=== PATIENT | female | born 1935 | race Caucasian/White ===

== ENCOUNTER 2017-06-30 05:31 | Inpatient (IN) | payer MEDICARE, MEDICAID ==
[2017-06-30] MEDS ORDERED: Albuterol Sulfate 1.25 MG/3 ML NEB ONE (06:01)
[2017-06-30] MEDS ORDERED: Magnesium Sulfate 2 GM/100 ML BAG ONE (06:01)
[2017-06-30] MEDS ORDERED: Water For Inject, Bacteriostat 30 ML ONE (06:06)
[2017-06-30] MEDS ORDERED: methylPREDNISolone Sod Succ/PF 125 MG/2 ML VIAL ONE (06:06)
[2017-06-30 06:28] LABS: Oxyhemoglobin 88.6 % (94.0-97.0); Sodium 137 mmol/L (135-148)
[2017-06-30 06:29] LABS: Mode BREATHING TX; Modified Allen's Test POSITIVE; Vent NO
[2017-06-30 06:38] LABS: Hematocrit 38.4 % (36.0-47.0); Mean Platelet Volume 9.4 fL (7.4-10.4); Red Blood Cell (RBC) Count 4.17 mill/uL (4.20-5.40)
[2017-06-30 07:01] LABS: Lactic Acid - Sepsis 1.4 mmol/L (0.5-2.2)
[2017-06-30 07:05] LABS: ALT (SGPT) 8 U/L (8-55); AST (SGOT) 13 U/L (5-34); Alkaline Phosphatase 73 U/L (40-150); Anion Gap 19 mmol/L (10-20); BUN (Urea Nitrogen) 21 mg/dL (9.8-20.1); Bilirubin, Total 0.8 mg/dL (0.2-1.2); Calc. Creatinine Clearance 0 mL/min (70-130); Calcium 10.3 mg/dL (7.8-10.44); Carbon Dioxide 26 mmol/L (23-31); Chloride 98 mmol/L (98-107); Estimated GFR-MDRD 31; Globulin 3.4 g/dL (2.4-3.5)
[2017-06-30 07:11] LABS: Troponin I 0.018 ng/mL (< 0.028)
[2017-06-30] MEDS ORDERED: Cefepime 0.5 GM, Admixture Fee 1 EACH in Sodium Chloride 0.9% 100 ML IVPB SCH (07:30)
[2017-06-30] MEDS ORDERED: Vancomycin HCl 1 GM in Premix Bag 1 BAG IVPB SCH (07:30)
--- NOTE | 2017-06-30 07:44 | RAD ---
AP VIEW CHEST: INDICATIONS: Dyspnea. COMPARISON: 02/10/2016 FINDINGS: The patient is rotated to the left slightly, limiting exam. There is suspicion for a moderate to p rominent layering left-sided pleural effusion. There is prominent cardiomegaly and mild pulmonary v ascular congestion. There is a tiny right pleural effusion present. There is a healed fracture def ormity involving the posterolateral aspect of the right third rib. Scattered degenerative change is present. There is a unilateral spinal construct involving the mid to lower thoracic spine, which i s stable. IMPRESSION: Some limitations of exam due to positioning; however, there is cardiomegaly with pulmonary vascular congestion and bilateral pleural effusion, raising the suspicion for congestive heart failure. Ther e is at least a moderate left layering pleural effusion and a tiny, small layering right pleural eff usion present. Continued followup is recommended. POS: IVAN
[2017-06-30] MEDS ORDERED: Acetaminophen 500 MG TAB ONE (07:47)
[2017-06-30] MEDS ORDERED: Sodium Chloride 0.65% Nasal 44 ML BOT EA NARE PRN (08:38)
[2017-06-30] MEDS ORDERED: Ondansetron ODT 4 MG TAB PO PRN (08:38)
[2017-06-30] MEDS ORDERED: Senokot 8.6 MG TAB PO PRN (08:38)
[2017-06-30] MEDS ORDERED: Diabetic Tussin 200 MG/10 ML UDCUP PO PRN (08:38)
[2017-06-30] MEDS ORDERED: Acetaminophen 325 MG TAB PO PRN (08:38)
[2017-06-30] MEDS ORDERED: Milk Of Magnesia 30 ML UDCUP PO PRN (08:38)
[2017-06-30] MEDS ORDERED: Artificial Tears 18 DROP/0.9 ML EA EYE PRN (08:38)
[2017-06-30] MEDS ORDERED: Mag-Al 1200 mg/1200 mg/30 ML UDCUP PO PRN (08:38)
[2017-06-30] MEDS ORDERED: Loperamide HCl 2 MG CAP PO PRN (08:38)
[2017-06-30] MEDS ORDERED: Ondansetron HCl/PF 4 MG/2 ML Vial IVP PRN (08:38)
[2017-06-30] MEDS ORDERED: Eucerin (Mineral Oil/Petrolatum,White) 30 gm Jar TOP PRN (08:38)
[2017-06-30] MEDS ORDERED: Enoxaparin Sodium 40 MG/0.4 ML SYRINGE SC SCH (09:00)
[2017-06-30] MEDS ORDERED: Cefepime 2 GM in Sodium Chloride 0.9% 100 ML IVPB SCH (09:00)
[2017-06-30] MEDS ORDERED: Famotidine/PF 20 mg/2ml Vial SLOW IVP SCH (09:00)
[2017-06-30] MEDS ORDERED: Lorazepam 2 MG/ML VIAL ONE (09:05)
[2017-06-30 10:17] LABS: Troponin I 0.027 ng/mL (< 0.028)
[2017-06-30 13:22] LABS: Bilirubin Negative (Negative); Blood, Urine Moderate (Negative); Glucose, Urine (Dipstick) Negative (Negative); Ketone, Urine Trace mg/dL (Negative)
[2017-06-30 13:23] LABS: Nitrite Positive (Negative); Protein, Urine (Dipstick) 100 mg/dL (Neg-Trace); Urobilinogen 0.2 mg/dL (0.2-1.0)
[2017-06-30 13:40] LABS: Bacteria/HPF Rare-Few HPF (None Seen); Hyaline Casts/LPF 4-6 HYALINE CAST LPF (0-3 Hyaline); Squamous Epithelial 0-3 HPF (0-3)
[2017-06-30 13:48] LABS: Renal Epithelial 0-3 HPF (0-3); Yeast-All Forms None Seen HPF (None Seen)
--- NOTE | 2017-06-30 14:31 | HP ---
PRIMARY CARE PHYSICIAN: Nida Alex M.D. REASON FOR ADMISSION: Sepsis, acute hypoxic respiratory failure, left-sided pleural effusion. HISTORY OF PRESENT ILLNESS: An 82-year-old female who lives at [facility]. The patient is in respiratory distress initially and she was not able to provide any history. When I saw this p atient, at that time, she was on BiPAP. She was not able to talk in full sentences, so most of the history will obtain from the emergency room record. The patient also has underlying dementia and ps ychiatric problems and she is also not able to provide any coherent history. I tried to call patient's listed phone number Michelle Amaya, but unable to reach her. At this point , the ER physician reported to me that patient was sent from intermediate for increasing shortness o f breath. The patient was hypoxic when she arrived to the emergency room. She was only saturating 88% on 4 liters nasal cannula. She required facemask. Even after facemask, the patient was remaini ng hypoxic; and that is why, she was tried on BiPAP. After BiPAP, patient's saturation improved. Initially, she was tachycardic, tachypneic, and febrile. Her temperature increased from 100.1 to 10 3.3. The patient remained in the ER. Subsequently, after BiPAP therapy, the patient was stabilized and B iPAP was discontinued and the patient was maintaining oxygen via face mask oxygen. In the emergency room, the patient had chest x-ray which showed large left-sided pleural effusion with underlying co nsolidation cannot be entirely excluded. As per previous report, patient does have a history of COPD, scoliosis. Looking at her old records, patient never had this large pleural effusion. I spoke with Dr. Almonte who will be consulting this patient. Initially, we were planning to admit her in IMCU, but as patient's condition was a little bit stabilized after the emergency room treatme nt. At this point, we are deciding to admit her on telemetry floor. EMERGENCY ROOM COURSE: Patient was given initially BiPAP. Patient has received vancomycin 1 gram, Levaquin 750 mg, cefepime 500 mg, Tylenol 1 g, Solu-Medrol 125 mg, DuoNeb therapy and magnesium sulf ate 2 g. REVIEW OF SYSTEMS: All review of systems tried to review with the patient, but unable to review at this point because patient is in respiratory distress. Review of systems from her also not reliable given her level of alertness. PAST MEDICAL HISTORY: Hypertension, chronic obstructive pulmonary disease, dyslipidemia, overactive bladder, scoliosis, chronic diastolic heart failure, mild coronary artery disease, obesity, gastroe sophageal reflux disease, Alzheimer's dementia, chronic normocytic anemia, history of C. diff coliti s and osteoporosis. PAST SURGICAL HISTORY: Cardiac catheterization, surgery for scoliosis with placement of hardware, s ubsequently removal of hardware, left hip surgery, right cataract surgery disease. PAST PSYCHIATRIC HISTORY: Anxiety, depression, bipolar disorder, and schizoaffective disorder. SOCIAL HISTORY: Patient lives at [facility]. No history of tobacco, alcohol or illicit drug abuse. FAMILY HISTORY: The patient is not able to provide any details of family history. ALLERGIES: Patient is not tolerating MILK PRODUCT and LIDOCAINE. CURRENT HOME MEDICATIONS: As per previous record, the patient is on following medication, Abilify 3 0 mg p.o. daily, Cogentin 1 mg p.o. b.i.d., calcium p.r.n., calcium with vitamin D 1 tablet twice da david, Celexa 20 mg p.o. daily, Aricept 10 mg p.o. at bedtime, Lasix 20 mg p.o. daily, DuoNeb q. 6 erwin rly and lactulose 30 mL p.o. b.i.d. p.r.n., Imodium p.r.n., Claritin p.r.n., metoprolol 12.5 mg p.o. b.i.d., multivitamin 1 tablet p.o. daily, Zofran p.r.n., and Zocor 20 mg p.o. at bedtime, Detrol 2 mg p.o. daily, tramadol 50 mg q.i.d. p.r.n. PHYSICAL EXAMINATION: VITAL SIGNS: On admission, blood pressure 155/85, pulse 118, respiratory rate 30, temperature 103.3 , saturation 96% on BiPAP, weight 77.1 kilograms. GENERAL: The patient was appeared initially in mild to moderate respiratory distress. HEENT: Currently, head: Normocephalic, atraumatic. Eyes: Pupils round, reactive to light. Extra ocular muscle intact. ENT: Oropharynx within normal limits. Moist mucous membranes. No oral lesions. No pharyngeal willie thema. No exudate. NECK: Supple. Range of motion is normal. No meningeal signs of irritation. LUNGS: Bilateral end expiratory wheezing heard. Air entry reduced on the left side as well as at b ase. Patient is using accessory muscles of respiration. CARDIAC: S1, S2, regular, tachycardia. No murmur. No gallop. No rub. ABDOMEN: Obesity present. Bowel sounds present, nontender, nondistended. No organomegaly. No mas s. No suprapubic tenderness. BACK EXAMINATION: Unremarkable, no CVA tenderness. EXTREMITIES: Upper extremity passive movement of all joints are normal. Lower extremities: No jessie ma. Good peripheral pulsation. SKIN: No skin rash. HEMATOLOGICAL SYSTEM: No lymphadenopathy. PSYCHIATRIC: Flat affect. When I saw this patient at that time, patient was appeared clinically more comfortable to go to [facility] floor rather than ICU. SIGNIFICANT LABS AND IMAGINGS: EKG showing sinus tachycardia. Chest x-ray based on my review, pulm onary vascular congestion, bilateral pleural effusions, left-sided pleural effusion. CBC: WBC 10.0 , hemoglobin 12.3, platelets 118,000. ABG: pH 7.43, pCO2 of 41.6, pO2 58.1, saturation 91.3, bicar bonate 27.0. BMP sodium 139, potassium 3.8, chloride 98, carbon dioxide 26, anion gap 19, BUN 21, c reatinine 1.59, glucose 116, calcium 9.3. Lactic acid 1.4. LFT: AST 13, ALT 8, alkaline phosphata se 73, albumin 3.6. CK-MB 0.7, troponin 0.018. BNP 179.9 and subsequent troponin 0.027. ASSESSMENT AND PLAN: 1. Acute hypoxic respiratory failure. This patient was in respiratory distress. She was using acc essory muscles of respiration. She was tachypneic. She did not maintain her saturations on nasal c annula, face mask and required short term BiPAP; now patient is off BiPAP. The patient is maintaini ng saturation with facemask. At this point, we underlying etiology of was hypoxic respiratory failu re is pleural effusion, underlying empyema is also possibility, acute on chronic diastolic heart rinku lure is also a possibility, underlying sepsis is also a possibility and patient also has underlying history of chronic obstructive pulmonary disease. At this point, the patient will be admitted to te lemetry floor. We will monitor her oxygen saturations. This patient most likely will end up with h ome oxygen therapy upon discharge. 2. Sepsis with acute organ dysfunction. This patient has high-grade fever, tachycardia, tachypnea with hypoxic respiratory failure and possible renal failure as well. At this point, the patient shruti l be given broad-spectrum antibiotic therapy with cefepime, Levaquin, and vancomycin. Based on pleu ral fluid, we will decide antibiotic therapy. 3. Left-sided pleural effusion. This patient has bilateral pleural effusion, but left-sided more t armendariz right. This could be from congestive heart failure given her high-grade fever, possibility of p arapneumonic effusion cannot be entirely excluded. This patient will need thoracentesis and Dr. Chen mckay is already consulted and he will do a thoracentesis and will follow up on the fluid culture rep ort. 4. Acute on chronic diastolic heart failure. This patient has bilateral pleural effusion. She has diastolic heart failure, so we will obtain echocardiography to assess ejection fraction and other s tructural abnormality. Patient will be given Lasix if blood pressure permits. 5. Chronic kidney disease stage 3-4. At this point, renal function will be monitored closely. We will avoid nephrotoxic agents. 6. Mild thrombocytopenia. This could be related with underlying sepsis. We will monitor CBC. 7. History of anxiety, depression, bipolar disorder, and schizoaffective disorder. At this point, was very, patient's home medication at intermediate; after that whenever patient is able to take p.o ., then we will resume all here psychiatric medication. 8. Chronic obstructive pulmonary disease exacerbation. The patient will be given DuoNeb therapy, S angel-Medrol 20 mg IV q.8 hourly, Robitussin p.r.n. basis. 9. Deep venous thrombosis prophylaxis. Lovenox 40 mg subcu daily. 10. Gastrointestinal prophylaxis, Pepcid 20 mg IV b.i.d. At this point, the patient is at intermediate. CODE STATUS: FULL code and I tried to reach family member to decide about code status, but I am not able to reach any family member. We will consult palliative care who assess with a goal of care. Disposition plan based on clinical course. We are expecting patient's stay in hospital more than 2 midnights. Plan of care discussed with the patient in detail. Prognosis poor. Condition fair.
--- NOTE | 2017-06-30 15:23 | CON ---
DATE OF CONSULTATION: 06/30/2017 SERVICE: Pulmonary Medicine. REASON FOR CONSULTATION: Pleural effusion. HISTORY OF PRESENT ILLNESS: The patient is an 82-year-old white female with past medical history significant for dementia and severe kyphoscoliosis and osteoarthritis. She is completely bedbound and favors sleeping on her left side. She has multiple decubitus ulcers. She is completely unaware of why she is here. She says she is breathing fine and has no acute issues. Otherwise, she is in her usual state of health so far as we are aware. She was in a nursing facility when she developed increasing hypoxemia. She had a fever of 103 and was promptly brought to the emergency department. Initial investigation demonstrated a fairly extensive infiltrate in the left lung. This is the side she favors on when lying down. PAST MEDICAL HISTORY: 1. Dementia. 2. Dyslipidemia. 3. Hypertension. 4. Coronary artery disease, non-flow limiting. 5. Chronic diastolic heart failure. 6. Bipolar disorder. 7. Overactive bladder. 8. Severe debility. PAST SURGICAL HISTORY: 1. Cardiac catheterization. 2. Scoliosis surgery with placement of hardware. 3. Subsequent removal of hardware. 4. Left hip fracture. 5. Right cataract extraction. FAMILY HISTORY: Noncontributory. SOCIAL HISTORY: She currently lives in a nursing facility. She is bedbound and requires total care. She has no significant history of alcohol, tobacco, or illicit drug use. ALLERGIES: MILK PRODUCTS, LIDOCAINE. MEDICATIONS: List of her inpatient medications were reviewed. No specific updates were made at this time. REVIEW OF SYSTEMS: General, head, ears, eyes, nose, throat, cardiovascular, respiratory, GI, , musculoskeletal, neurologic and skin is negative except as mentioned in the HPI. PHYSICAL EXAMINATION: VITAL SIGNS: Afebrile, pulse 69, blood pressure 130/79, respirations 16, saturation 97% on 2 liters nasal cannula. GENERAL: Patient is awake, alert, in no apparent distress. LUNGS: Decent air entry on the right. There is rhonchi present on the left. There is also decreased air entry on that side. No crackles or wheezing is appreciated. HEART: Normal rate, regular. ABDOMEN: Soft, nontender, nondistended. Bowel sounds are positive. She has a large hernia. MUSCULOSKELETAL: No cyanosis or clubbing. No pitting in the bilateral lower extremities. She has a little bit of skin tenting. GENITOURINARY: No Cota. NEUROLOGIC: Grossly nonfocal. LABORATORY DATA: WBC 10.0, hemoglobin 12.3, platelets 118,000. Neutrophil count is pending. PH 7.43, pCO2 of 41, pO2 of 58 on 40% FIO2 corresponding to saturation of 91%. Creatinine 1.53, which is slightly above baseline. Basic metabolic profile, liver function study, cardiac enzymes x2 are unremarkable. Lactate is normal. BNP is above her previous baseline established in 02/2016 at 180. WBCs are greater than 50 in the urine. She has positive leukocyte esterase and nitrites. IMAGING: Chest x-ray demonstrates extensive opacities involving the entirety of the left lung. The pleural effusion cannot completely be excluded. There is cardiomegaly and some pulmonary vascular congestion. There is a blunting of the right costophrenic angle as well, suggestive of a possible effusion on that side. Extensive hardware is in place throughout the spine. ASSESSMENT: 1. Acute hypoxic respiratory failure. 2. Severe kyphoscoliosis. 3. Dementia, advanced. 4. Debility. 5. Healthcare-associated pneumonia, likely associated with gross aspiration. 6. Failure to thrive PLAN: We will do a swallow evaluation. We will be continued on broad spectrum antibiotics. I did a bedside ultrasound, but did not identify any significant pocket of fluid. We will repeat a chest x-ray in 2 to 3 days, but as long as things remain stable, we will likely need a repeat chest x-ray in the outpatient setting in roughly 6 weeks. Ultimately, the patient likely develops this infiltrate because she is in bedbound state and favors lying on her left side. She does not cough and mucus plugging may be playing a role. My suspicion is, she is chronically spilling stuff into her lungs. I will continue to follow while she remains in the hospital for the time being, but a palliative care consultation and speech evaluation will be placed. EJ
[2017-06-30] MEDS: Saccharomyces boulardii 250 MG CAP PO SCH (16:44)
[2017-06-30] MEDS: Bisacodyl 10 MG SUPP PR PRN (17:55)
[2017-06-30] MEDS: Cefepime 2 GM in Sodium Chloride 0.9% 100 ML IVPB SCH (22:22)
[2017-07-01 06:06] LABS: #Lymphocytes 0.4 thou/uL (1.20-3.40); #Monocytes 0.7 thou/uL (0.11-0.59); #Neutrophils 11.6 thou/uL (1.40-6.50); %Eosinophils 0.1 % (0.0-10.0); %Lymphocytes 2.8 % (21.0-51.0); %Monocytes 5.3 % (0.0-10.0); Hematocrit 33.8 % (36.0-47.0); Mean Platelet Volume 10.1 fL (7.4-10.4); Red Blood Cell (RBC) Count 3.64 mill/uL (4.20-5.40); White Blood Cell (WBC) Count 12.6 thou/uL (4.8-10.8)
[2017-07-01 06:32] LABS: ALT (SGPT) 7 U/L (8-55); AST (SGOT) 12 U/L (5-34); Alkaline Phosphatase 69 U/L (40-150); Anion Gap 17 mmol/L (10-20); BUN (Urea Nitrogen) 33 mg/dL (9.8-20.1); Bilirubin, Total 0.4 mg/dL (0.2-1.2); Calc. Creatinine Clearance 26 mL/min (70-130); Carbon Dioxide 29 mmol/L (23-31); Chloride 96 mmol/L (98-107); Estimated GFR-MDRD 28; Globulin 3.6 g/dL (2.4-3.5); Protein, Total 6.9 g/dL (6.0-8.3)
--- NOTE | 2017-07-01 07:26 | PDOC.PN ---
- Subjective Encounter Start Date: 07/01/17 Encounter Start Time: 07:24 Subjective: alert,appropriate, knows her PCP, residense - Objective Resuscitation Status: Resuscitation Status FULL:Full Resuscitation MAR Reviewed: Yes Vital Signs & Weight: Vital Signs (12 hours) Temp Pulse Resp BP Pulse Ox 07/01/17 00:00 97.4 F L 87 18 113/53 L 97 06/30/17 23:41 78 16 92 L 06/30/17 19:50 97.4 F L 87 18 108/58 L 96 Weight Weight 141 lb I&O: 06/30/17 07/01/17 07/02/17 06:59 06:59 06:59 Intake Total 240 Balance 240 Result Diagrams: 07/01/17 04:28 07/01/17 04:28 Phys Exam - Physical Examination Constitutional: NAD Neck: no JVD decreased BS, worse on left. dull L base Cardiovascular: RRR, no significant murmur Gastrointestinal: soft, positive bowel sounds Musculoskeletal: edema present Dx/Plan (1) PNA (pneumonia) Code(s): J18.9 - PNEUMONIA, UNSPECIFIED ORGANISM Status: Acute Qualifiers: Pneumonia type: due to unspecified organism Laterality: left (2) Pleural effusion due to congestive heart failure Code(s): I50.9 - HEART FAILURE, UNSPECIFIED Status: Chronic (3) Chronic diastolic (congestive) heart failure Code(s): I50.32 - CHRONIC DIASTOLIC (CONGESTIVE) HEART FAILURE Status: Chronic (4) CAD (coronary artery disease) Code(s): I25.10 - ATHSCL HEART DISEASE OF [place] CORONARY ARTERY W/O ANG PCTRS Status: Chronic Qualifiers: Coronary Disease-Associated Artery/Lesion type: [place] artery [place] vs. transplanted heart: [place] heart Associated angina: without angina Qualified Code(s): I25.10 - Atherosclerotic heart disease of [place] coronary artery without angina pectoris (5) HTN (hypertension) Code(s): I10 - ESSENTIAL (PRIMARY) HYPERTENSION Status: Acute Qualifiers: Hypertension type: essential hypertension Qualified Code(s): I10 - Essential (primary) hypertension (6) CKD (chronic kidney disease) stage 3, GFR 30-59 ml/min Code(s): N18.3 - CHRONIC KIDNEY DISEASE, STAGE 3 (MODERATE) Status: Chronic - Plan marked improvement in alertness -: await C&S -: cont iv antibx, steroids, resp tx -: reinstitute metoprolol -: discuss with Dr Almonte * .
[2017-07-01] MEDS: Cefepime 2 GM in Sodium Chloride 0.9% 100 ML IVPB SCH ×2 (09:33→21:45)
[2017-07-01] MEDS: Saccharomyces boulardii 250 MG CAP PO SCH (09:36)
[2017-07-01] MEDS: Loratadine 10 MG TAB PO SCH (09:36)
[2017-07-01] MEDS: Enoxaparin Sodium 40 MG/0.4 ML SYRINGE SC SCH (09:38)
[2017-07-01] MEDS: Vancomycin HCl 500 MG in Sodium Chloride 0.9% 100 ML IVPB SCH (09:55)
--- NOTE | 2017-07-01 12:09 | PQF ---
CLINICAL DOCUMENTATION IMPROVEMENT CLARIFICATION FORM: ICD-10 Updated PLEASE DO AN ADDENDUM TO THE PROGRESS NOTE WITH ANY DOCUMENTATION UPDATES OR ADDITIONS AND CARRY THROUGH TO DC SUMMARY. THANK YOU. DATE: 07/01/17 ATTN: DR. MONTES DE OCA The following CLINICAL INDICATORS - SIGNS / SYMPTOMS are present in the medical record: H&P 06/30: "SEPSIS WITH ACUTE ORGAN DYSFUNCTION" TEMP 103.3 RECTAL PULSE 118 RR 32 WBC 12.6 RISKS: PNEUMONIA TREATMENT: IV VANCOMYCIN (ER-PRESENT) IV CEFEPIME (ER-PRESENT) IV LEVAQUIN (ER-PRESENT) BLOOD CULTURES CARDIAC MONITORING Please provide a response below if a more specific term indicating a diagnosis and/or acuity level for this condition can be identified. Please exercise your independent, professional judgment in responding to the clarification form. Present on Admission:[ ] Yes[ ] No[ ] Unable to determine [ ] Sepsis (include causative agent if known) Due to: [ ] Device [ ] Implant [ ] Graft [ ] Infusion [ ] [ ] SIRS due to non-infectious process [ ] with organ dysfunction [ ] without organ dysfunction [ ] Severe sepsis with acute organ dysfunction of: (Examples: respiratory failure, encephalopathy, acute kidney failure, other) [ ] Septic shock [ ] Sepsis related to a device (i.e. port, IV line, pacer / ICD leads, Cota, etc.) [ x ] Does not apply to this patient [ ] Unable to determine [ ] Other diagnosis Definitions [facility] 2002: SIRS- clinical response to an insult, infection, or trauma that includes a systemic in?ammation as well as increased or decreased temp, increased pulse, respiration and white count. SEPSIS- SIRS due to infection without organ dysfunction. SEVERE SEPSIS- SIRS due to an infection that progress to organ dysfunction. SEPTIC SHOCK- circulatory failure associated with severe sepsis, and represents a type of acute organ dysfunction. (This form is maintained as a part of the permanent medical record) 2015 [employer]. All Rights Reserved [email or web address] Office: [phone] [facility] HOSPITALDin[facility]
--- NOTE | 2017-07-01 12:20 | PQF ---
CLINICAL DOCUMENTATION IMPROVEMENT CLARIFICATION FORM: ICD-10 Updated PLEASE DO AN ADDENDUM TO THE PROGRESS NOTE WITH ANY DOCUMENTATION UPDATES OR ADDITIONS AND CARRY THROUGH TO DC SUMMARY. THANK YOU. DATE: 07/01/17 ATTN: DR. 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 Please exercise your independent, professional judgment in responding to the clarification form. [ ] Gram Negative Pneumonia[ ] Gram Positive Pneumonia [ ] MRSA Pneumonia[ ] MSSA Pneumonia [ ] Pneumonia due to (specify organism / underlying disease) (e.g. E. Coli, Klebsiella, Pneumococcus, Pseudomonas, Other Staph) [ ] Community acquired (simple) Pneumonia [ ] Healthcare / Hospital Acquired Pneumonia (outside facility / prior hospitalization) [ x ] Aspiration pneumonia [ x] Associated illness: [ x ] Respiratory failure [ ] Sepsis [ ] Underlying lung disease [ ] Other [ ] Pneumonia of unknown etiology [ ] Infiltrates without evidence of Pneumonia [ ] Does not apply to this patient [ ] Unable to determine [ ] Other diagnosis: [ ] Present on Admission (POA): [ ] Yes [ ] No [ ] Unable to determine [employer] (This form is maintained as a part of the permanent medical record) 2014 [employer]. All Rights Reserved [email or web address] Office: [phone] [facility]
--- NOTE | 2017-07-01 14:07 | PDOC.EVN ---
Event Note - Event Note Event Note: faailed bedside swallow. NPO, gentle iv fluids
[2017-07-01] MEDS: D5 1/4 NS w/20 mEq KCL 1,000 ML IV SCH (15:27)
--- NOTE | 2017-07-01 16:48 | PRG ---
DATE OF SERVICE: 07/01/2017 SERVICE: Pulmonary Medicine. INTERVAL HISTORY: The patient is doing fine from a cardiovascular and respiratory standpoint. She denies any current fevers, chills, nausea, vomiting , chest pain, shortness of breath, nausea, vomiting or diarrhea. Otherwise, she has no specific complaints. That being said, she really does not remember why she came to the hospital in the first place. PHYSICAL EXAMINATION: VITAL SIGNS: Afebrile, pulse 115, blood pressure 114/57, respirations 20, saturation 96% on 3.5 liters nasal cannula. GENERAL: Patient is awake, alert, in no apparent distress. LUNGS: Reduced air entry with prolonged expiratory phase and both rhonchi and crackles present. It is worse on the left, than the right. HEART: Normal rate, regular. ABDOMEN: Soft, nontender, nondistended. Bowel sounds positive. MUSCULOSKELETAL: No cyanosis or clubbing. No pitting in the bilateral lower extremities. NEUROLOGIC: Grossly nonfocal. LABORATORY DATA: WBC 12.6, hemoglobin 11.0, platelets 133,000, improving. Neutrophil count is 92%. Creatinine 1.75, BUN 33. Basic metabolic profile and liver function studies are otherwise unremarkable. Cardiac enzymes are negative x3. Nitrites and leukocyte esterase are positive on the urinalysis. Respiratory virus panel is unremarkable. Blood cultures are negative x2 today. ASSESSMENT: 1. Acute hypoxic respiratory failure. 2. Severe kyphoscoliosis. 3. Dementia. 4. Debility. 5. Healthcare-associated pneumonia, likely associated with gross aspiration. 6. Failure to thrive. PLAN: We have the patient to undergo evaluation with speech pathology. Broad spectrum antibiotics will be continued to target healthcare associated organisms. Based on bedside ultrasound, there is not pleural effusion. Pulmonary will continue to follow while the patient remains in house. Ultimately, the patient's respiratory diseases likely associated with severe debility and chronic inability to effectively clear her airway. EJ
[2017-07-01] MEDS ORDERED: Non-Formulary Item 1 EACH (Simvastatin [Zocor] 10 MG) PO SCH (21:00)
[2017-07-01] MEDS: Simvastatin 5 MG TAB PO SCH (21:46)
[2017-07-02] MEDS: D5 1/4 NS w/20 mEq KCL 1,000 ML IV SCH ×2 (03:57→17:31)
--- NOTE | 2017-07-02 08:39 | PDOC.PN ---
- Subjective Encounter Start Date: 07/02/17 Encounter Start Time: 08:35 Subjective: much more alert, no distress - Objective Resuscitation Status: Resuscitation Status DNR:Do Not Resuscitate MAR Reviewed: Yes Vital Signs & Weight: Vital Signs (12 hours) Temp Pulse Resp BP Pulse Ox 07/02/17 06:47 101 H 20 96 07/02/17 04:00 98.0 F 88 18 117/56 L 97 07/02/17 00:52 81 16 100 07/02/17 00:00 97.1 F L 105 H 20 110/55 L 99 Weight Weight 141 lb I&O: 07/01/17 07/02/17 07/03/17 06:59 06:59 06:59 Intake Total 560 1110 Balance 560 1110 Result Diagrams: 07/01/17 04:28 07/01/17 04:28 Phys Exam - Physical Examination Constitutional: NAD Neck: no JVD dull L base,post rales Cardiovascular: RRR, no significant murmur Gastrointestinal: soft, positive bowel sounds Musculoskeletal: edema present Dx/Plan (1) PNA (pneumonia) Code(s): J18.9 - PNEUMONIA, UNSPECIFIED ORGANISM Status: Acute Qualifiers: Pneumonia type: aspiration pneumonia Laterality: left (2) Pleural effusion due to congestive heart failure Code(s): I50.9 - HEART FAILURE, UNSPECIFIED Status: Chronic (3) Chronic diastolic (congestive) heart failure Code(s): I50.32 - CHRONIC DIASTOLIC (CONGESTIVE) HEART FAILURE Status: Chronic (4) CAD (coronary artery disease) Code(s): I25.10 - ATHSCL HEART DISEASE OF [place] CORONARY ARTERY W/O ANG PCTRS Status: Chronic Qualifiers: Coronary Disease-Associated Artery/Lesion type: [place] artery [place] vs. transplanted heart: [place] heart Associated angina: without angina Qualified Code(s): I25.10 - Atherosclerotic heart disease of [place] coronary artery without angina pectoris (5) HTN (hypertension) Code(s): I10 - ESSENTIAL (PRIMARY) HYPERTENSION Status: Acute Qualifiers: Hypertension type: essential hypertension Qualified Code(s): I10 - Essential (primary) hypertension (6) CKD (chronic kidney disease) stage 3, GFR 30-59 ml/min Code(s): N18.3 - CHRONIC KIDNEY DISEASE, STAGE 3 (MODERATE) Status: Chronic - Plan cont antibx, O2, steroids -: rpt cxr, discuss with pulmonology * .
[2017-07-02] MEDS: Saccharomyces boulardii 250 MG CAP PO SCH (09:03)
[2017-07-02] MEDS: Loratadine 10 MG TAB PO SCH (09:03)
[2017-07-02] MEDS: Enoxaparin Sodium 40 MG/0.4 ML SYRINGE SC SCH (09:03)
[2017-07-02] MEDS: Vancomycin HCl 500 MG in Sodium Chloride 0.9% 100 ML IVPB SCH (09:07)
[2017-07-02] MEDS: Cefepime 2 GM in Sodium Chloride 0.9% 100 ML IVPB SCH (09:12)
[2017-07-02 09:57] LABS: Vancomycin, Trough 7.9 ug/mL
[2017-07-02] MEDS ORDERED: Vancomycin HCl 1 GM in Premix Bag 1 BAG IVPB SCH (11:00)
--- NOTE | 2017-07-02 12:24 | RAD ---
AP VIEW CHEST: 07/02/2017 HISTORY: Pneumonia. COMPARISON: 06/30/2017 FINDINGS: AP view chest demonstrates right-sided thoracic spine surgical hardware with pedicle screws in place . The patient has marked dextroscoliosis. There is cardiomegaly seen. There appears to be an area of lucency in the left retrocardiac area, c oncerning for a possible hiatal hernia. The patient has had a decrease in the left-sided pleural ef fusion, when compared to the previous exam from two days earlier. Some fluid remains in the left surekha ng base. POS: [facility]
--- NOTE | 2017-07-02 15:44 | PRG ---
DATE OF SERVICE: 07/02/2017 SUBJECTIVE: Surprisingly, she is awake and responsive. She denies any difficulty breathing. PHYSICAL EXAMINATION: VITAL SIGNS: Pulse 106, temperature 97, blood pressure 100/73, pulse 96. CHEST: Decreased breath sounds. No wheezing or crackles. CARDIAC: Normal S1, S2. No gallops. ABDOMEN: Soft, no masses. X-RAY FINDINGS: Chest x-ray shows cardiomegaly, small left-sided effusion. IMPRESSION: 1. Respiratory failure, improved. 2. Kyphoscoliosis. 3. Dementia. 4. Pneumonia. 5. Aspiration. PLAN: Microbiologic cultures are negative. I would consider deescalating antibiotics. Continue ot [facility] supportive care, neb, PT.
[2017-07-02] MEDS: Simvastatin 5 MG TAB PO SCH ×2 (19:59→20:28)
[2017-07-03] MEDS: D5 1/4 NS w/20 mEq KCL 1,000 ML IV SCH ×2 (05:34→19:47)
[2017-07-03] MEDS ORDERED: Vancomycin HCl 500 MG in Sodium Chloride 0.9% 100 ML IVPB SCH (09:00)
[2017-07-03] MEDS: Loratadine 10 MG TAB PO SCH (09:51)
[2017-07-03] MEDS: Enoxaparin Sodium 40 MG/0.4 ML SYRINGE SC SCH (09:51)
[2017-07-03] MEDS: Saccharomyces boulardii 250 MG CAP PO SCH (09:51)
--- NOTE | 2017-07-03 10:10 | PDOC.PN ---
- Subjective Encounter Start Date: 07/03/17 Encounter Start Time: 10:07 Subjective: no sob, pain, etc - Objective Resuscitation Status: Resuscitation Status DNR:Do Not Resuscitate MAR Reviewed: Yes Vital Signs & Weight: Vital Signs (12 hours) Temp Pulse Resp BP Pulse Ox 07/03/17 08:15 97.9 F 110 H 22 H 139/72 2 L 07/03/17 07:48 101 H 18 96 07/03/17 04:00 98.4 F 108 H 18 121/70 99 07/03/17 00:57 103 H 20 99 07/03/17 00:00 98.3 F 127 H 24 H 139/66 92 L Weight Weight 143 lb 12.8 oz I&O: 07/02/17 07/03/17 07/04/17 06:59 06:59 06:59 Intake Total 1110 780 Balance 1110 780 Result Diagrams: 07/01/17 04:28 07/01/17 04:28 Phys Exam - Physical Examination Constitutional: NAD Neck: no JVD dull L base with rales Cardiovascular: RRR 3/6 sys murmur Gastrointestinal: soft, positive bowel sounds Musculoskeletal: edema present Dx/Plan (1) PNA (pneumonia) Code(s): J18.9 - PNEUMONIA, UNSPECIFIED ORGANISM Status: Acute Qualifiers: Pneumonia type: aspiration pneumonia Laterality: left (2) Pleural effusion due to congestive heart failure Code(s): I50.9 - HEART FAILURE, UNSPECIFIED Status: Chronic (3) Chronic diastolic (congestive) heart failure Code(s): I50.32 - CHRONIC DIASTOLIC (CONGESTIVE) HEART FAILURE Status: Chronic (4) CAD (coronary artery disease) Code(s): I25.10 - ATHSCL HEART DISEASE OF [place] CORONARY ARTERY W/O ANG PCTRS Status: Chronic Qualifiers: Coronary Disease-Associated Artery/Lesion type: [place] artery [place] vs. transplanted heart: [place] heart Associated angina: without angina Qualified Code(s): I25.10 - Atherosclerotic heart disease of [place] coronary artery without angina pectoris (5) HTN (hypertension) Code(s): I10 - ESSENTIAL (PRIMARY) HYPERTENSION Status: Acute Qualifiers: Hypertension type: essential hypertension Qualified Code(s): I10 - Essential (primary) hypertension (6) CKD (chronic kidney disease) stage 3, GFR 30-59 ml/min Code(s): N18.3 - CHRONIC KIDNEY DISEASE, STAGE 3 (MODERATE) Status: Chronic - Plan cont iv antibx -: cont O2, steroids, consider change to po -: discussed aspiration with speech tx, cancl MBS, avoid thi liquids * .
--- NOTE | 2017-07-03 17:23 | PDOC.EVN ---
Event Note - Event Note Event Note: sustained sinus tachcardia, of po metoprolol. start iv metoprolol.
--- NOTE | 2017-07-03 17:23 | PRG ---
DATE OF SERVICE: 07/03/2017 SUBJECTIVE: She denies any pain or shortness of breath. X-ray yesterday shows significant rotation , questionable left-sided infiltrate. PHYSICAL EXAMINATION: VITAL SIGNS: Temperature 97, sats are 99% on 2 liters, respiration 22, blood pressure 100/72. CHEST: Decreased breath sounds, no wheezing. CARDIAC: Normal S1, S2, no gallops. ABDOMEN: Soft, no masses. IMPRESSION: 1. Urinary tract infection. 2. Pneumonia. 3. Deconditioning. 3. Kyphoscoliosis. PLAN: 1. She may be switched over to oral antibiotic. 2. Pulmonary to follow. 3. Levaquin she is on is resistant to her E. coli.
[2017-07-03] MEDS: Metoprolol Tartrate 5 MG/5 ML VIAL IVP PRN (18:04)
[2017-07-03] MEDS: Sulfameth/Trimethoprim DS 800-160mg TAB PO SCH (19:48)
[2017-07-03] MEDS: Simvastatin 5 MG TAB PO SCH ×2 (19:50→19:52)
[2017-07-04] MEDS: Metoprolol Tartrate 5 MG/5 ML VIAL IVP PRN (06:17)
[2017-07-04 07:42] VITALS: BMI 3979.0
[2017-07-04] MEDS ORDERED: Metoprolol Tartrate 5 MG/5 ML VIAL IVP SCH (08:00)
[2017-07-04] MEDS: Loratadine 10 MG TAB PO SCH (08:18)
[2017-07-04] MEDS: Sulfameth/Trimethoprim DS 800-160mg TAB PO SCH ×2 (08:18→21:35)
[2017-07-04] MEDS: Saccharomyces boulardii 250 MG CAP PO SCH (08:18)
[2017-07-04] MEDS: Enoxaparin Sodium 40 MG/0.4 ML SYRINGE SC SCH (08:18)
[2017-07-04] MEDS: Bisacodyl 10 MG SUPP PR PRN (08:19)
[2017-07-04] MEDS: D5 1/4 NS w/20 mEq KCL 1,000 ML IV SCH ×2 (08:21→21:35)
[2017-07-04] MEDS ORDERED: Metoprolol Tartrate 5 MG/5 ML VIAL IVP PRN (09:32)
--- NOTE | 2017-07-04 09:36 | PDOC.PN ---
- Subjective Encounter Start Date: 07/04/17 Encounter Start Time: 09:33 Subjective: alert, no sob, etc - Objective Resuscitation Status: Resuscitation Status DNR:Do Not Resuscitate MAR Reviewed: Yes Vital Signs & Weight: Vital Signs (12 hours) Temp Pulse Resp BP Pulse Ox 07/04/17 06:45 117 H 20 99 07/04/17 04:00 98.6 F 114 H 18 122/56 L 100 07/04/17 00:36 97 18 98 07/04/17 00:00 97.4 F L 88 20 141/87 H 99 Weight Weight 141 lb 8 oz I&O: 07/03/17 07/04/17 07/05/17 06:59 06:59 06:59 Intake Total 780 2773 Balance 780 2773 Result Diagrams: 07/01/17 04:28 07/01/17 04:28 Phys Exam - Physical Examination Constitutional: NAD Neck: no JVD Respiratory: clear to auscultation bilateral dull L base Cardiovascular: RRR, no significant murmur Gastrointestinal: soft, positive bowel sounds Musculoskeletal: edema present Dx/Plan (1) PNA (pneumonia) Code(s): J18.9 - PNEUMONIA, UNSPECIFIED ORGANISM Status: Acute Qualifiers: Pneumonia type: aspiration pneumonia Laterality: left (2) Pleural effusion due to congestive heart failure Code(s): I50.9 - HEART FAILURE, UNSPECIFIED Status: Chronic (3) Chronic diastolic (congestive) heart failure Code(s): I50.32 - CHRONIC DIASTOLIC (CONGESTIVE) HEART FAILURE Status: Chronic (4) CAD (coronary artery disease) Code(s): I25.10 - ATHSCL HEART DISEASE OF [place] CORONARY ARTERY W/O ANG PCTRS Status: Chronic Qualifiers: Coronary Disease-Associated Artery/Lesion type: [place] artery [place] vs. transplanted heart: [place] heart Associated angina: without angina Qualified Code(s): I25.10 - Atherosclerotic heart disease of [place] coronary artery without angina pectoris (5) HTN (hypertension) Code(s): I10 - ESSENTIAL (PRIMARY) HYPERTENSION Status: Acute Qualifiers: Hypertension type: essential hypertension Qualified Code(s): I10 - Essential (primary) hypertension (6) CKD (chronic kidney disease) stage 3, GFR 30-59 ml/min Code(s): N18.3 - CHRONIC KIDNEY DISEASE, STAGE 3 (MODERATE) Status: Chronic - Plan much improved, on purred, thickened liquids -: reinsituting metoprolol po, cont prn iv for rate control -: cont po SXT -: DC to NH when stable on diet, poo meds * .
[2017-07-04] MEDS ORDERED: Metoprolol Tartrate 25 MG TAB PO SCH (12:00)
--- NOTE | 2017-07-04 20:55 | PRG ---
DATE OF SERVICE: 07/04/2017 SERVICE: Pulmonary Medicine. INTERVAL HISTORY: The patient is doing fine from a respiratory standpoint. She has no complaints of nausea, vomiting, or diarrhea. Otherwise, she is in her usual state of health. PHYSICAL EXAMINATION: VITAL SIGNS: Afebrile, pulse 87, blood pressure 108/60, respirations 18, saturation 96% on 2 liters nasal cannula. GENERAL: Patient is awake, alert, in no apparent distress. LUNGS: Decent air entry without prolonged expiratory phase, wheezing, rhonchi or crackles. HEART: Normal rate, regular. ABDOMEN: Soft, nontender, nondistended. Bowel sounds positive. MUSCULOSKELETAL: No cyanosis or clubbing. There is no pitting in the bilateral lower extremities. NEUROLOGIC: Grossly nonfocal. LABORATORY DATA: Urine culture is growing E. coli, which is [place] resistant and extended spectrum beta lactamase producing organism. Blood cultures x2 and respiratory virus panel is negative. IMAGING: Echocardiogram demonstrates 60% ejection fraction with fused E/A waves , but there is likely diastolic dysfunction present. No significant valvular abnormalities are identified. ASSESSMENT: 1. Acute hypoxic respiratory failure. 2. Healthcare-associated pneumonia, possible, associated with gross aspiration. 3. Debility. 4. Dementia. 5. Severe kyphoscoliosis. 6. Failure to thrive. PLAN: Continue supportive care, antibiotics, and aspiration precautions. At this time , the patient has no further need for inpatient pulmonary or critical care opinion. I will sign off. Please call with additional questions or concerns. EJ
[2017-07-04] MEDS: Metoprolol Tartrate 25 MG TAB PO SCH (21:34)
--- NOTE | 2017-07-05 08:18 | PDOC.PN ---
- Subjective Encounter Start Date: 07/05/17 Encounter Start Time: 08:16 Subjective: SOB improving -: No cp/palpitations -: No n/v - Objective Resuscitation Status: Resuscitation Status DNR:Do Not Resuscitate MAR Reviewed: Yes Vital Signs & Weight: Vital Signs (12 hours) Temp Pulse Resp BP Pulse Ox 07/05/17 06:29 81 16 97 07/05/17 04:00 98.2 F 87 21 H 129/83 96 07/05/17 00:00 97.9 F 82 20 137/63 96 Weight Weight 137 lb 6.4 oz I&O: 07/04/17 07/05/17 07/06/17 06:59 06:59 06:59 Intake Total 2773 761 Balance 2773 761 Result Diagrams: 07/01/17 04:28 07/01/17 04:28 Phys Exam - Physical Examination Constitutional: NAD HEENT: moist MMs, sclera anicteric Neck: no nodes, no JVD Respiratory: no wheezing, no rales Cardiovascular: no significant murmur, no rub Gastrointestinal: soft, non-tender, no distention, positive bowel sounds Neurological: non-focal Lymphatic: no nodes Psychiatric: normal affect Skin: no rash, normal turgor Dx/Plan (1) CAD (coronary artery disease) Code(s): I25.10 - ATHSCL HEART DISEASE OF [place] CORONARY ARTERY W/O ANG PCTRS Status: Chronic Qualifiers: Coronary Disease-Associated Artery/Lesion type: [place] artery [place] vs. transplanted heart: [place] heart Associated angina: without angina Qualified Code(s): I25.10 - Atherosclerotic heart disease of [place] coronary artery without angina pectoris (2) CKD (chronic kidney disease) stage 3, GFR 30-59 ml/min Code(s): N18.3 - CHRONIC KIDNEY DISEASE, STAGE 3 (MODERATE) Status: Chronic (3) Chronic diastolic (congestive) heart failure Code(s): I50.32 - CHRONIC DIASTOLIC (CONGESTIVE) HEART FAILURE Status: Chronic (4) Pleural effusion due to congestive heart failure Code(s): I50.9 - HEART FAILURE, UNSPECIFIED Status: Chronic (5) UTI (urinary tract infection) Status: Acute (6) COPD with exacerbation Code(s): J44.1 - CHRONIC OBSTRUCTIVE PULMONARY DISEASE W (ACUTE) EXACERBATION Status: Acute - Plan * Dysphagia: on purred, thickened liquids * COPD exacerbation/Pneumonitis - appreciate pulm input, continue steroids * E. coli UTI - continue Bactrim for E coli UTI - Cr likely elevated 2/2 Bactrim (check Cr in AM) * Physical Debility - consult PT/OT * Goals of care - palliative care consulted * Pending acceptance to SNF (will discharge when Cr plateaus)
[2017-07-05] MEDS: Metoprolol Tartrate 25 MG TAB PO SCH ×2 (08:52→21:45)
[2017-07-05] MEDS: Sulfameth/Trimethoprim DS 800-160mg TAB PO SCH ×2 (08:52→21:45)
[2017-07-05] MEDS: Saccharomyces boulardii 250 MG CAP PO SCH (08:52)
[2017-07-05] MEDS: Enoxaparin Sodium 40 MG/0.4 ML SYRINGE SC SCH (08:52)
[2017-07-05] MEDS: Loratadine 10 MG TAB PO SCH (08:52)
[2017-07-05] MEDS: D5 1/4 NS w/20 mEq KCL 1,000 ML IV SCH ×2 (10:36→21:46)
[2017-07-05] MEDS: Simvastatin 5 MG TAB PO SCH (21:45)
[2017-07-06 06:36] LABS: #Eosinphils 0.1 thou/uL (0.0-0.7); #Lymphocytes 1.5 thou/uL (1.20-3.40); #Monocytes 1.1 thou/uL (0.11-0.59); %Eosinophils 0.6 % (0.0-10.0); %Lymphocytes 9.5 % (21.0-51.0); %Monocytes 7.1 % (0.0-10.0); Hematocrit 36.9 % (36.0-47.0); Mean Platelet Volume 9.4 fL (7.4-10.4); Red Blood Cell (RBC) Count 4.08 mill/uL (4.20-5.40); White Blood Cell (WBC) Count 15.7 thou/uL (4.8-10.8)
[2017-07-06 06:58] LABS: Anion Gap 12 mmol/L (10-20); BUN (Urea Nitrogen) 16 mg/dL (9.8-20.1); Calc. Creatinine Clearance 41 mL/min (70-130); Calcium 7.9 mg/dL (7.8-10.44); Carbon Dioxide 20 mmol/L (23-31); Chloride 103 mmol/L (98-107); Estimated GFR-MDRD 49
[2017-07-06] MEDS: Sulfameth/Trimethoprim DS 800-160mg TAB PO SCH (08:29)
[2017-07-06] MEDS: Enoxaparin Sodium 40 MG/0.4 ML SYRINGE SC SCH (08:29)
[2017-07-06] MEDS: Saccharomyces boulardii 250 MG CAP PO SCH (08:29)
[2017-07-06] MEDS: Loratadine 10 MG TAB PO SCH (08:30)
[2017-07-06] MEDS: Metoprolol Tartrate 25 MG TAB PO SCH (08:30)
--- NOTE | 2017-07-06 09:11 | PDOC.PN ---
- Subjective Encounter Start Date: 07/06/17 Encounter Start Time: 09:10 Subjective: SOB stable -: Pleasant -: No cp/palpitations - Objective Resuscitation Status: Resuscitation Status DNR:Do Not Resuscitate MAR Reviewed: Yes Vital Signs & Weight: Vital Signs (12 hours) Temp Pulse Resp BP Pulse Ox 07/06/17 08:00 98 F 87 16 112/56 L 94 L 07/06/17 07:43 97 07/06/17 07:41 85 16 97 07/06/17 04:00 98.5 F 82 18 117/60 97 07/06/17 00:38 85 18 97 Weight Weight 137 lb 6.4 oz I&O: 07/05/17 07/06/17 07/07/17 06:59 06:59 06:59 Intake Total 761 2078 Balance 761 2077 Result Diagrams: 07/06/17 06:12 07/06/17 06:12 Phys Exam - Physical Examination Constitutional: NAD HEENT: moist MMs, sclera anicteric Neck: no nodes, no JVD Respiratory: no rales, no rhonchi Cardiovascular: no significant murmur, no rub Gastrointestinal: soft, non-tender, positive bowel sounds Neurological: non-focal Psychiatric: normal affect Skin: no rash, normal turgor Dx/Plan (1) CAD (coronary artery disease) Code(s): I25.10 - ATHSCL HEART DISEASE OF [place] CORONARY ARTERY W/O ANG PCTRS Status: Chronic Qualifiers: Coronary Disease-Associated Artery/Lesion type: [place] artery [place] vs. transplanted heart: [place] heart Associated angina: without angina Qualified Code(s): I25.10 - Atherosclerotic heart disease of [place] coronary artery without angina pectoris (2) CKD (chronic kidney disease) stage 3, GFR 30-59 ml/min Code(s): N18.3 - CHRONIC KIDNEY DISEASE, STAGE 3 (MODERATE) Status: Chronic (3) Chronic diastolic (congestive) heart failure Code(s): I50.32 - CHRONIC DIASTOLIC (CONGESTIVE) HEART FAILURE Status: Chronic (4) Pleural effusion due to congestive heart failure Code(s): I50.9 - HEART FAILURE, UNSPECIFIED Status: Chronic (5) UTI (urinary tract infection) Status: Acute (6) COPD with exacerbation Code(s): J44.1 - CHRONIC OBSTRUCTIVE PULMONARY DISEASE W (ACUTE) EXACERBATION Status: Acute - Plan * Dysphagia: on purred, thickened liquids * COPD exacerbation/Pneumonitis - appreciate pulm input, continue steroids * E. coli UTI - continue Bactrim for E coli UTI - Cr likely elevated 2/2 Bactrim - Cr now in normal range * Physical Debility - consulted PT/OT * Goals of care - palliative care consulted - pt and family requested hospice * Will go to SNF for Hospice services. Discharge summary: [id number]
[2017-07-06] MEDS: D5 1/4 NS w/20 mEq KCL 1,000 ML IV SCH (11:09)
[2017-07-06 14:14] VITALS: BP 114/57; TEMP 97.8
--- NOTE | 2017-07-06 16:02 | DIS ---
DATE OF ADMISSION: 06/30/2017 DATE OF DISCHARGE: 07/06/2017 PRIMARY DISCHARGE DIAGNOSES: 1. Coronary artery disease. 2. Chronic kidney disease, stage 3. 3. Chronic diastolic congestive heart failure. 4. Pleural effusion secondary to congestive heart failure exacerbation. 5. Urinary tract infection. 6. Chronic obstructive pulmonary disease exacerbation. HOSPITAL COURSE SUMMARY: This is a very pleasant 82-year-old female, who presented from [facility] as a result of respiratory distress, who was admitted for COPD and CHF exacerbation. She was treated with steroids and antibiotics along with diuretics. The patient's shortness of breath has improved and she feels very comfortable breathing today on nasal cannula oxygen. She denies any chest pain. She also denies any fevers or chills. Over the course of the hospitalization, she has spoken with the palliative care team and after multiple discussions, she and her family have decide d on hospice care. [facility] with hospice ca re. For discharge physical examination, labs, and imaging, please refer to my progress note from earlier today. DISCHARGE MEDICATIONS: Reviewed and reconciled, please refer to the chart for details. DISCHARGE PLAN/DISPOSITION: 1. [facility]charge [facility] to [facility] today with hospice care. 2. Activity: As tolerated at the nursing facility under hospice orders. Activity will be per her dysphagia diet, which is pureed thickened liquid. 3. She will continue Bactrim for her E. Coli UTI.
== END 2017-07-06 16:46 | disposition hospice, inpatient (51) | DRG 177 ==
LOC: ERS 05:31 → ERHOLD 07:34 → 2NO 15:37
PROVIDERS: ADMIT Internal Medicine; ATTEND Internal Medicine
PROC: 5A09357 Assistance with Respiratory Ventilation, Less than 24 Consecutive Hours, Continuous Positive Airway Pressure (ICD-10-PCS; principal; 2017-06-30)
DX: J69.0 Pneumonitis due to inhalation of food and vomit (principal); J96.01 Acute respiratory failure with hypoxia; I50.33 Acute on chronic diastolic (congestive) heart failure; D69.6 Thrombocytopenia, unspecified; J44.1 Chronic obstructive pulmonary disease with (acute) exacerbation; N39.0 Urinary tract infection, site not specified; R13.10 Dysphagia, unspecified; N18.3 Chronic kidney disease, stage 3 (moderate); M41.9 Scoliosis, unspecified; I13.0 Hypertensive heart and chronic kidney disease with heart failure and stage 1 through stage 4 chronic kidney disease, or unspecified chronic kidney disease; J18.9 Pneumonia, unspecified organism; G30.9 Alzheimer's disease, unspecified; F02.80 Dementia in other diseases classified elsewhere, unspecified severity, without behavioral disturbance, psychotic disturbance, mood disturbance, and anxiety; E78.5 Hyperlipidemia, unspecified; N32.81 Overactive bladder; I25.10 Atherosclerotic heart disease of native coronary artery without angina pectoris; E66.9 Obesity, unspecified; Z68.26 Body mass index [BMI] 26.0-26.9, adult; K21.9 Gastro-esophageal reflux disease without esophagitis; D63.1 Anemia in chronic kidney disease; M81.0 Age-related osteoporosis without current pathological fracture; F41.9 Anxiety disorder, unspecified; F32.9 Major depressive disorder, single episode, unspecified; Z88.8 Allergy status to other drugs, medicaments and biological substances; Z91.018 Allergy to other foods; R53.81 Other malaise; R62.7 Adult failure to thrive; B96.20 Unspecified Escherichia coli [E. coli] as the cause of diseases classified elsewhere; Z51.5 Encounter for palliative care; M06.9 Rheumatoid arthritis, unspecified; Z86.73 Personal history of transient ischemic attack (TIA), and cerebral infarction without residual deficits; F31.9 Bipolar disorder, unspecified; Y95 Nosocomial condition
CPT/HCPCS: 36415; 51701; 71010; 80048; 80053; 80202; 81003; 81015; 82553; 82805; 83605; 83880; 84484; 85025; 87040; 87077; 87086; 87186; 87633; 93005; 93306; 94640; 94660; 96365; 96366; 96367; 96375; A4216; A4353; G8987-GO-CK; G8988-GO-CJ; G8996-GN-CK; G8996-GN-CM; G8996-GN-CN; G8997-GN-CJ; G8997-GN-CK; J0692; J1650; J1956; J2060; J2920; J2930; J3370; J3475; J7050; J7620; Q0162